=== PATIENT | female | born 1980 | race Caucasian/White ===

== ENCOUNTER 2023-05-07 23:15 | Emergency (ER) | payer MEDICARE, SELFPAY ==
[2023-05-07 23:26] VITALS: BP 134/69; BMI 30.1
--- NOTE | 2023-05-08 00:05 | ED.GENMED ---
History of Present Illness
<KATE Dupont - Last Filed: 05/08/23 00:23>
General
Chief Complaint: Skin Problem
Source: patient
Exam Limitations: none
Time Seen by Provider: 05/07/23 23:50
Nursing documentation reviewed up to this point in time: agreed with
Travel History
Have you had any contact with someone who has COVID-19?: No
Do you have any symptoms of coronavirus? Fever > 100 degrees, chills, cough, shortness of breath, sore throat, loss of taste or smell, muscle aches, or headache?: No
History of Present Illness
History of Present Illness:
42 y/o incarcerated female presents to ED complaining of abscess on left leg. Patient reports that she had surgery for the abscess on December 22. Per patient, she was septic at time due to the abscess. Patient reports the the abscess is slowly
healing. Patient injured her L knee 3 days ago which is now swollen, red and mildly painful. Patient thinks another abscess is forming above her old one where the swelling is. She also reports her right leg is mildly red is concerned about
cellulitis. Patient reports she is not able to bend her knee fully due to the swelling and pain. Patient is also complaining of being in withdrawal from alcohol. She reports shes been nauseaous and dry heaving. Patient also feels flushed and shaky.
She denies vomiting or headache.
If applicable-neuro sx onset
Onset of symptoms known: No
Time pt last seen normal is known: No
Review of Systems
<KATE Dupont - Last Filed: 05/08/23 00:23>
Review of Systems
Allergies reviewed?: Yes
All Other Systems: ROS reviewed and negative except as documented in HPI and ROS
Constitutional: Reports no symptoms
EENT: Reports no symptoms
Respiratory: Reports no symptoms
Cardiac: Reports no symptoms
ABD/GI: Reports nausea and other (dry heaving)
: Reports no symptoms
Musculoskeletal: Reports no symptoms
Skin: Reports rash
Neurological: Reports no symptoms
Endocrine: Reports no symptoms
Hematologic/Lymphatic: Reports no symptoms
Psychiatric: Reports no symptoms
Phy Exam
<Cortney DunawayKATE - Last Filed: 05/08/23 00:23>
General Physical Exam
General Presentation: well appearing and no apparent distress
General age: appears stated age
General Skin: warm and dry
General Habitus: normal
General Mental: alert
General Hydration: appears well hydrated
Cardiovascular Exam
Cardiovascular Exam: regular rate/rhythm, no edema, no gallop, no murmur and normal peripheral pulses
Pulmonary Exam
Pulmonary Exam: lungs clear, no respiratory distress, no rales, no crackles and no rhonchi
Gastrointestinal Exam
Gastrointestinal Exam: non tender, soft and non distended
Neurological Exam
Neurological Exam: alert and oriented x3
Musculoskeletal Exam
Musculoskeletal Exam: other (limited ROM of left knee, mildly tender along knee )
Skin Exam
Skin Exam: normal color, warm/dry and other (L knee with moderate edema, mild erythema, and petechiae laterally along knee, 4cm abrasion on lower left leg. R lower posterior leg with erythema )
Psychiatric Exam
Psychiatric Exam: normal mood/affect and anxious
Scores
<KATE Dupnot - Last Filed: 05/08/23 00:23>
Withdrawal Assessment of Alcohol
Withdrawal Assessment Completed?: Yes
Nausea and Vomiting: Intermittent nausea with dry heaves
Tactile Disturbances: None
Tremor: No tremor
Auditory Disturbances: Not present
Paroxysmal Sweats: No sweat visible
Visual Disturbances: Not present
Anxiety: Mild anxiety
Headache, Fullness in Head: Not present
Agitation: Moderately fidgety and restless
Orientation and clouding of sensorium: Oriented and can do serial additions
Total CIWA Score: 9
Alcohol Withdrawal Medication Recommendation: Equal to MSAS Score 5-7. Lorazepam 1mg IV or PO NOW & re-assess q2hrs
<Eldon Ladd DO - Last Filed: 05/08/23 06:27>
Withdrawal Assessment of Alcohol
Total CIWA Score: 9
Alcohol Withdrawal Medication Recommendation: Equal to MSAS Score 5-7. Lorazepam 1mg IV or PO NOW & re-assess q2hrs
Course
<KATE Dupont - Last Filed: 05/08/23 00:23>
Orders/Labs/Results
Orders:
Orders
05/08/23 00:41
CBC/With Diff [Complete Blood Count/With Diff] Urgent
CMP [Comprehensive Metabolic Panel] Urgent
05/08/23 01:05
US Legs, Bilateral [US Periph Venous LOWER Ext Bill] Urgent
Comment:
Reason For Exam: swelling
05/08/23 03:13
Cephalexin Monohydrate [Keflex] 500 mg PO NOW STA
Abnormal Lab Results
05/08/23
00:41
WBC 3.7 L 10^3/uL
(4.8-10.8)
RBC 3.58 L 10^6/uL
(4.20-5.40)
Hgb 9.2 L g/dL
(12.0-16.0)
Hct 27.8 L %
(37.0-47.0)
MCV 77.7 L fL
(81.0-99.0)
MCH 25.7 L pg
(27.0-31.0)
RDW 18.3 H %
(11.5-14.5)
Absolute Lymphs (auto) 1.1 L 10^3/uL
(1.2-3.4)
Sodium 132 L mmol/L
(135-145)
Creatinine 0.5 L mg/dL
(0.6-1.0)
AST 51 H U/L
(14-36)
05/08/23 00:41
05/08/23 00:41
Vital Signs
Initial and Last Documented VS:
Initial Vital Signs
Temp Pulse Resp BP Pulse Ox
98.0 F 100 16 134/69 100
05/07/23 23:26 05/07/23 23:26 05/07/23 23:26 05/07/23 23:26 05/07/23 23:26
Last Documented Vital Signs
Temp Pulse Resp BP Pulse Ox
98.0 F 100 16 134/69 100
05/07/23 23:26 05/07/23 23:26 05/07/23 23:26 05/07/23 23:26 05/07/23 23:26
<Eldon Ladd, DO - Last Filed: 05/08/23 06:27>
Orders/Labs/Results
Orders:
Orders
05/08/23 00:41
CBC/With Diff [Complete Blood Count/With Diff] Urgent
CMP [Comprehensive Metabolic Panel] Urgent
05/08/23 01:05
US Legs, Bilateral [US Periph Venous LOWER Ext Bill] Urgent
Comment:
Reason For Exam: swelling
05/08/23 03:13
Cephalexin Monohydrate [Keflex] 500 mg PO NOW STA
Abnormal Lab Results
05/08/23
00:41
WBC 3.7 L 10^3/uL
(4.8-10.8)
RBC 3.58 L 10^6/uL
(4.20-5.40)
Hgb 9.2 L g/dL
(12.0-16.0)
Hct 27.8 L %
(37.0-47.0)
MCV 77.7 L fL
(81.0-99.0)
MCH 25.7 L pg
(27.0-31.0)
RDW 18.3 H %
(11.5-14.5)
Absolute Lymphs (auto) 1.1 L 10^3/uL
(1.2-3.4)
Sodium 132 L mmol/L
(135-145)
Creatinine 0.5 L mg/dL
(0.6-1.0)
AST 51 H U/L
(14-36)
05/08/23 00:41
05/08/23 00:41
Vital Signs
Initial and Last Documented VS:
Initial Vital Signs
Temp Pulse Resp BP Pulse Ox
98.0 F 100 16 134/69 100
05/07/23 23:26 05/07/23 23:26 05/07/23 23:26 05/07/23 23:26 05/07/23 23:26
Last Documented Vital Signs
Temp Pulse Resp BP Pulse Ox
98.0 F 100 16 134/69 100
05/07/23 23:26 05/07/23 23:26 05/07/23 23:26 05/07/23 23:26 05/07/23 23:26
<KATE Dupont - Last Filed: 05/08/23 00:23>
MDM/Problems Addressed
Differential Diagnosis Includes:
Cellulitis
Abscess
Abrasion
Knee fracture
<Eldon Ladd DO - Last Filed: 05/08/23 06:27>
*Critical Care Note
Total Time (30-74mins, 75-104mins- exclusive of procedures): Not Applicable
ED Attending Note
<KATE Dupont - Last Filed: 05/08/23 00:23>
-
Portions of this chart may have been created with voice recognition software.� Occasional wrong word or��sound alike� substitutions may have occurred due to the inherent limitations of voice recognition software.
Discharge Plan
Departure
Patient Disposition: Home (Routine Discharge)
Date of Disposition: 05/08/23
Time of Disposition: 03:14
Patient with high blood pressure during this ER visit?: No
Condition: Good
Discharge Problem:
Leg injury, Cellulitis
Instructions: Wound Care (DC)
Prescriptions:
New
cephalexin 500 mg capsule
500 mg PO BID 10 Days Qty: 20 0RF
Referrals:
[facility] [Outside]
[facility] [Outside]
NONE,* [Family Provider] -
Activity Restrictions/Additional Instructions:
Patient is medically cleared for incarceration
It was a pleasure meeting you and taking part in your care. We hope for your continued healing and wellness.
Please read discharge instructions in their entirety. However, they are for general education and may not describe your exact diagnosis at discharge. Information on your ER visit and medical conditions were discussed with you along with appropriate
follow up information...
If indicated, please take your medications as instructed and indicated on discharge paperwork.
Please schedule a follow up appointment as directed. Call to schedule an appointment
Please return to the emergency department with ANY change in, persisting, or worsening of symptoms. If any of your symptoms do not improve, or persist, or become more severe within 6-12 hours, please return to the emergency department for further
care.
Please return to the emergency department if you develop a headache, neck pain/stiffness, fever greater than 100.4F, chest pain, shortness of breath, persistent nausea, vomiting, slurred speech, difficulty walking, numbness/tingling, weakness, signs
of infection or any other symptoms that are worrisome to you.
If you have any questions or concerns please do not hesitate to call the Hospital at
Interventions
Interventions:
*Risk Screen - Suicide Last Done: 05/07/23 23:26
*General Assessment Last Done: 05/07/23 23:26
*Neglect/Abuse Screening Last Done: 05/07/23 23:26
ED- Fall Risk Assessment Last Done: 05/08/23 02:00
*ED COVID-19 Vaccine History Last Done: 05/07/23 23:26
*Nursing Disposition Last Done: 05/08/23 03:51
ED-Skin Assessment Last Done: 05/08/23 02:00
Discharge Date and Time
Discharge Date/Time: 05/08/23 03:51
[2023-05-08 00:50] LABS: % Basophils 0.8 % (0-2); % Eosinophils 1.4 % (0-6); % Immature Granulocytes 0.5 % (0-0.5); % Lymphocytes 31.1 % (20.5-51.1); % Monocytes 7.4 % (1.7-9.3); % Neutrophils 58.8 % (42.2-75.2); Absolute Eosinophils 0.1 10^3/uL (0-0.7); Absolute Lymphocytes 1.1 10^3/uL (1.2-3.4); Absolute Monocytes 0.3 10^3/uL (0.1-0.6); Absolute Neutrophils 2.2 10^3/uL (1.4-6.5); Hematocrit 27.8 % (37.0-47.0); Hemoglobin 9.2 g/dL (12.0-16.0); Mean Corp Hgb Conc. 33.1 g/dL (33.0-37.0); Mean Corpuscular Hgb 25.7 pg (27.0-31.0); Mean Corpuscular Volume 77.7 fL (81.0-99.0); Mean Platelet Volume 9.8 fL (7.4-10.4); Nucleated Red Blood Cells % 0 %; Platelet Count 183 10^3/uL (130-400); Red Blood Cell Count 3.58 10^6/uL (4.20-5.40); Red Cell Dist. Width 18.3 % (11.5-14.5); White Blood Cell Count 3.7 10^3/uL (4.8-10.8)
[2023-05-08 01:10] LABS: ALT (SGPT) 17 U/L (0-35); AST (SGOT) 51 U/L (14-36); Alkaline Phosphatase 125 U/L (38-126); Blood Urea Nitrogen 15 mg/dl (7-17); Calcium 8.8 mg/dl (8.4-10.2); Carbon Dioxide 26 mmol/L (22-30); Chloride 100 mmol/L (98-107); Estimated Creatinine Clearance > 125 ml/min; Glucose 83 mg/dl (70-99); Potassium 3.8 mmol/L (3.5-5.1); Sodium 132 mmol/L (135-145); Total Bilirubin 0.9 mg/dl (0.2-1.3); Total Protein 7.5 g/dl (6.3-8.2); eGFR > 60.00
[2023-05-08] MEDS: KEFLEX 500 MG PO (03:22)
== END 2023-05-08 03:51 | disposition home or self-care (01) ==
LOC: EMR 23:15
PROVIDERS: EMERGENCY PHYSICIAN Student in an Organized Health Care Education/Training Program
DX: L03.116 Cellulitis of left lower limb (principal); L03.115 Cellulitis of right lower limb; S89.92XA Unspecified injury of left lower leg, initial encounter; X58.XXXA Exposure to other specified factors, initial encounter
CPT/HCPCS: 99284; 80053; 85025; 93970